=== PATIENT | male | born 1990 | race Hispanic/Latino ===

== ENCOUNTER → 2017-05-01 | Outpatient (CLI) | payer OTHER ==
[~2017-05-01] MED LIST: SODIUM CHLORIDE HYPERTONIC 3% 15ML NEB SOL NEB ONE
== END ==
LOC: M CARPUL 09:25
PROVIDERS: ATTEND Internal Medicine Infectious Disease
DX: R76.11 Nonspecific reaction to tuberculin skin test without active tuberculosis (principal)

== ENCOUNTER → 2017-05-02 | Outpatient (CLI) | payer OTHER | LOC: M CARPUL 10:12 | PROVIDERS: ATTEND Internal Medicine Infectious Disease | DX: R76.11 Nonspecific reaction to tuberculin skin test without active tuberculosis (principal) ==

== ENCOUNTER → 2017-05-03 | Outpatient (CLI) | payer OTHER ==
[~2017-05-03] MED LIST changes: +ISOVUE-370 76% 100ML VIAL (Q9967) As Ordered ONE; -SODIUM CHLORIDE HYPERTONIC 3% 15ML NEB SOL NEB ONE
--- NOTE | 2017-05-05 09:42 | REP ---
CT study of the chest with IV contrast: History: Abnormal chest x-ray. Positive PPD study. Comparison chest x-ray is retrieved from April 17, 2017. CT contrast dose: 75 ml of I[address]vue 370. CT findings: Digital preliminary non profit director radiograph is unremarkable. Lung giron are well inflated and clear. There is no evidence of pulmonary nodule, mass, infiltrate or interstitial disease. No tracheobronchial disease is seen. No pleural or pericardial effusion is seen. No hilar or mediastinal mass or adenopathy is observed. No extra thoracic adenopathy or mass is seen. No adrenal lesion is seen. The visualized upper abdominal structures are unremarkable. No bony destructive lesion is seen. Impression: Normal CT study of the chest with IV contrast. Signed by Leoncio Boateng MD 05/05/2017 08:08 A
== END ==
LOC: M RAD 16:50
PROVIDERS: ATTEND Preventive Medicine Public Health & General Preventive Medicine
DX: R91.8 Other nonspecific abnormal finding of lung field (principal)
CPT/HCPCS: 71260; Q9967

== ENCOUNTER 2019-01-23 19:56 | Emergency (ER) | payer OTHER ==
[~2019-01-23] VITALS: Ht 185.4 cm; Wt 87.3 kg
[2019-01-23] MEDS ORDERED: LOPE1TAB PO (20:08)
[2019-01-23 20:49] LABS: HEMATOCRIT 51.9 % (42.0-52.0); HEMOGLOBIN 17.2 g/dl (13.5-17.5); MEAN CORPUSCULAR HEMOGLOBIN 29.9 pg (27.0-33.0); MEAN CORPUSCULAR HGB CONC 33.1 g/dl (32.0-36.5); MEAN CORPUSCULAR VOLUME 90.1 fl (80.0-96.0); PLATELET COUNT, AUTOMATED 264 10^3/uL (150-450); RED BLOOD COUNT 5.76 10^6/uL (4.30-6.10); WHITE BLOOD COUNT 6.2 10^3/uL (4.0-10.0)
[2019-01-23 21:11] LABS: ALBUMIN 4.2 GM/DL (3.2-5.2); ALT/SGPT 36 U/L (12-78); BILIRUBIN,TOTAL 0.6 MG/DL (0.2-1.0); BLOOD UREA NITROGEN 17 MG/DL (7-18); CALCIUM LEVEL 9.6 MG/DL (8.5-10.1); CARBON DIOXIDE LEVEL 25 MEQ/L (21-32); CHLORIDE LEVEL 104 MEQ/L (98-107); GLOMERULAR FILTRATION RATE > 60.0 (>60); GLUCOSE, FASTING 98 MG/DL (70-100); LIPASE 80 U/L (73-393); POTASSIUM SERUM 4.4 MEQ/L (3.5-5.1); SODIUM LEVEL 137 MEQ/L (136-145); TOTAL PROTEIN 7.7 GM/DL (6.4-8.2)
[2019-01-23] MEDS ORDERED: ONDANSETRON 4MG/2ML VIAL (J2405) IV ONE (21:45)
[2019-01-23] MEDS ORDERED: KETOROLAC 30 MG/ML VIAL (J1885) IV ONE (21:45)
[2019-01-23] MEDS ORDERED: NS 1,000 ML IV ONE (21:45)
[2019-01-23] MEDS ORDERED: PANTOPRAZOLE 40MG INJ (PROTONIX) (C9113) IV ONE (21:45)
[2019-01-23] MEDS ORDERED: ZOFR4TAB16 PO (23:20)
[2019-01-23 23:31] VITALS: BP 130/69
--- NOTE | 2019-01-24 00:47 | REP ---
Clinical: Acute abdominal pain. Technique: Upright view of the chest with supine and upright views of the abdomen and pelvis. Findings: Frontal upright view of the chest demonstrates no acute cardiopulmonary process or free air below the diaphragm to suspect pneumoperitoneum. Supine and upright views of the abdomen and pelvis demonstrate nonspecific bowel gas pattern without obstruction or perforation. No organomegaly. No abnormal calcifications. Skeletal structures normal for age. Impression: Nonspecific bowel gas pattern. Electronically Signed by South Hughes MD 01/24/2019 12:39 A
== END 2019-01-23 23:33 | disposition home or self-care (01) ==
LOC: M ED 19:56
DX: A08.4 Viral intestinal infection, unspecified (principal)
CPT/HCPCS: 74021; 80053; 83690; 85027; 96361; 96374; 96375; 99284; C9113; J1885; J2405